=== PATIENT | female | born 1970 | race Caucasian/White ===

== ENCOUNTER → 2021-12-10 | Day surgery (SDC) | payer OTHER ==
[~2021-12-10] VITALS: Ht 162.6 cm; Wt 92.1 kg
[~2021-12-10] MED LIST: AIMOVIG AU70 MG/1 ML SC; ASPIRIN EC81 MG PO; COZAAR50 MG PO; DESVENLAFAXINE50 MG PO; EXCEDRIN MIGRA1 EACH PO; ISORDIL TITRADOS5 MG PO; LIPITOR 10MG TA10 MG PO; PERCOCET 7.5/321 TAB PO; PROTONIX 40MG T40 MG PO; TOPAMAX100 MG PO; TUMERIC PO; VERAPAMIL ER120 M1 PO; VITAMIN D3125 MC2 PO
[2021-12-10 08:20] LABS: HCT 41.8 % (37.0-47.0); HGB 13.8 g/dl (12.5-16.0); MCH 30.5 pg (25.0-31.0); MCV 92.3 fL (78.0-100.0); MPV 9.3 fL (6.0-9.5); RBC 4.53 M/uL (4.20-5.40); RDW 13.2 % (11.5-14.0); WBC 12.3 K/uL (4.0-10.5)
[2021-12-10 08:32] LABS: BILIRUBIN - TOTAL 0.2 mg/dL (0.2-1.0); CREATININE 0.89 mg/dL (0.51-0.95); GLOBULIN (CALCULATION) 3.9 g/dL; POTASSIUM 3.7 mmol/L (3.5-5.1); TOTAL PROTEIN 7.9 g/dL (6.4-8.2)
== END | disposition home or self-care (01) ==
LOC: FAS 07:41
PROVIDERS: Surgery
DX: K59.00 Constipation, unspecified (principal); R19.7 Diarrhea, unspecified; K29.50 Unspecified chronic gastritis without bleeding; K44.9 Diaphragmatic hernia without obstruction or gangrene; K21.9 Gastro-esophageal reflux disease without esophagitis; I25.10 Atherosclerotic heart disease of native coronary artery without angina pectoris; I10 Essential (primary) hypertension; Z86.010 Personal history of colon polyps; Z90.49 Acquired absence of other specified parts of digestive tract; Z90.710 Acquired absence of both cervix and uterus; Z98.51 Tubal ligation status; Z95.5 Presence of coronary angioplasty implant and graft; Z88.5 Allergy status to narcotic agent; Z79.82 Long term (current) use of aspirin
CPT/HCPCS: 36415; 80053; J2250; J2704; J7120